=== PATIENT | female | born 1955 | race Caucasian/White ===

== ENCOUNTER 2019-06-11 10:15 | Emergency (ER) | payer MEDICAID ==
[~2019-06-11] VITALS: Ht 162.6 cm; Wt 74.8 kg
[~2019-06-11 10:15] MED LIST: AEROECLIPSE II1 EACH MC; ALBU90OI; ALBU90OI INH; AZIT250 PO; AZIT500 PO; BENZ100A PO; BUSP15 PO; BUSPAR; CYAN100; DIPH50 PO; GUAI120S1 PO; HYDACE5 PO; HYDACE5325 PO; HYDACE7.5 PO; MULVITA; Mucinex600 MG PO; NAPR250; NAPR500 PO; PARO30 PO; PRED10 PO; PRED20 PO; PROCODE120 PO; Prednisone20 MG PO; RANI150 PO; RXCYCL10 PO; RXHYDACE PO; Ventolin Soln3 ML INH; Zithromax250 MG PO
== END 2019-06-11 11:50 | disposition home or self-care (01) ==
LOC: ER 10:15
DX: J44.9 Chronic obstructive pulmonary disease, unspecified (principal); H72.92 Unspecified perforation of tympanic membrane, left ear; F17.200 Nicotine dependence, unspecified, uncomplicated; Z91.048 Other nonmedicinal substance allergy status; Z91.030 Bee allergy status
CPT/HCPCS: 71046; 99283-25